=== PATIENT | male | born 1970 | race Caucasian/White ===

== ENCOUNTER 2021-01-10 22:22 | Observation (INO) | payer BC, SELFPAY ==
--- NOTE | ~2021-01-10 | CT_ITS ---
EXAMINATION: CT abdomen pelvis w con DATE: 01/10/2021 23:57 INDICATION: Right upper quadrant abdominal pain TECHNIQUE: Computed tomography (CT) of the abdomen and pelvis was performed with 100 cc Omnipaque 350 intravenous contrast. The dose-length product was 867.76 mGy-cm. Automated exposure control and iter ative reconstruction technique were employed. COMPARISON: None. FINDINGS: Lung bases unremarkable. No significant pleural or pericardial effusion. Heart size normal. No significant vascular abnormality. No lymphadenopathy. Gallbladder is distended. There is a gallstone. There is a punctate 2 mm cystic duct stone. No signif icant biliary dilatation. Subcentimeter hypodense lesion of the right hepatic lobe, most likely benign. The spleen, pancreas, a drenal glands and kidneys are unremarkable. Normal appendix. No abnormal pelvic masses or fluid colle ctions. No free air or free fluid. No lytic or blastic lesions. Mild lumbar spondylosis. IMPRESSION: 1. Punctate 2 mm cystic duct stone. Cholelithiasis. Gallbladder distention. Consider cholecystitis in the appropriate clinical setting. Reviewed, dictated and finalized at location A. IMPRESSION: 1. Punctate 2 mm cystic duct stone. Cholelithiasis. Gallbladder distention. 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
--- NOTE | ~2021-01-10 | XR_ITS ---
EXAMINATION: XR chest 2V EXAM DATE: 01/10/2021 22:52 INDICATION: Right upper quadrant pain. TECHNIQUE: Frontal and lateral projections of the chest obtained and reviewed. There is no prior chandler dy for comparison. FINDINGS: The lungs are clear. There are no pleural effusions. The cardiomediastinal silhouette is within normal limits. There is no pneumothorax suspected. Lower cervical fusion. IMPRESSION: No acute cardiopulmonary findings. Reviewed, dictated and finalized at location A.
[2021-01-10 22:24] VITALS: BP 155/105; PULSE 85; RESP 20; TEMP 36.3; O2SAT 98
--- NOTE | 2021-01-10 22:26 | ECG_ITS ---
Measurements Intervals [place] Rate: 76 P: 53 ME: 176 QRS: 22 QRSD: 99 T: -17 QT: 357 QTc: 404 Interpretive Statements SINUS RHYTHM POSSIBLE LEFT ATRIAL ENLARGEMENT ST-T WAVE ABNORMALITY IN INFERIOR LEADS- CONSIDER ISCHEMIA BASELINE ARTIFACT- I, II, III, AVR, AVL, AVF, V4-V6 ABNORMAL ECG Electronically Signed On 01-11-2021 6:54:30 CDT by Nilson Cyr D.O.
--- NOTE | 2021-01-10 22:34 | ED.CHESTPAIN ---
HPI - Chest Pain General Chief Complaint: Chest Pain Stated Complaint: Chest, upper abd pain Time Seen by Provider: 01/10/21 22:33 History of Present Illness HPI narrative: RUQ and epigastric pain for the past couple of hours. Started about 30 minutes after dinner. Severe. Radiates to the back. Associated with nausea and SOB. He has never had this pain before. He still has his gall bladder. Related Data Allergies Allergy/AdvReac Type Severity Reaction Status Date / Time No Known Allergies Allergy Verified 01/10/21 22:50 Review of Systems Review of Systems: All systems reviewed & are unremarkable except as noted in HPI and below Constitutional: Constitutional: Reports chills and Denies fever(s) Cardiovascular: Cardiovascular: Denies chest pain Respiratory: Respiratory: Reports dyspnea Gastrointestinal: Gastrointestinal: Reports abdominal pain, Reports nausea and Denies vomiting Genitourinary: Genitourinary: Reports no additional male genitourinary complaints Musculoskeletal: Musculoskeletal: Reports back pain Neurologic: Reports system reviewed and no additional complaints, except as documented [facility] Past Medical History Medical History (Updated 01/11/21 @ 14:35 by Joseph Hightower MD) Renal stones Surgical History Surgical History (Updated 01/11/21 @ 08:29 by ULISSES Ramirez) H/O mastectomy For benign lesions of the breast History of carpal tunnel release Bilateral History of cervical spinal surgery History of knee surgery Family History Family History Mother Gallbladder disease Social History Social History Social History: Works and lives near [place]. Currently here visiting a relative. Smoking status: Never smoker Second hand tobacco smoke exposure: No Alcohol intake: current Drinks per week: 1 Substance use: never Substance use type: does not use Occupation/Education: occupation Gender identity (if verbalized by the patient): Male Spiritual care concerns: No Exam Const: General: healthy appearing, no acute distress, alert and uncomfortable Orientation/consciousness: patient oriented x3 HENMT: Head: normal to inspection Resp: Effort & Inspection: normal respiratory effort Auscultation: clear to auscultation bilaterally Cardio: Rate: regular rate Rhythm: regular rhythm GI: Inspection: non-distended GI Palp: Yes Soft to palpation, Yes Tenderness to palpation present (GI) (epigastrium), No Guarding due to palpation present (GI) and No Rebound tenderness present Skin: General skin exam: normal color Neuro: General: patient oriented x3, moves all extremities, no focal motor deficits and CN's II-XI intact bilaterally Speech: normal speech Extrem: General: normal to inspection Psych: Affect: Anxious affect present Course Vital Signs Vital signs: Vital Signs Temperature 36.3 C L 01/10/21 22:24 Pulse Rate 85 01/10/21 22:24 Respiratory Rate 20 01/10/21 22:24 Blood Pressure 155/105 H 01/10/21 22:24 Pulse Oximetry 98 01/10/21 22:24 Temperature 36.4 C 01/11/21 13:00 Pulse Rate 71 01/11/21 13:00 Respiratory Rate 18 01/11/21 13:00 Blood Pressure 139/88 01/11/21 13:00 Pulse Oximetry 97 01/11/21 13:00 MDM - Chest Pain MDM Narrative Medical decision making narrative: CT shows likely early acute cholecystitis. No significant improvement in pain after fentanyl. Case discussed with Dr. Lozoya. He will admit for pain control and reevaluate in the morning Differential Diagnosis Differential diagnosis: Likely other (Cholecystitis, Gastritis, GERd, ) Medical Records Data Attestation: I reviewed the patient's medical records. Lab Data Result diagrams: 01/10/21 22:49 01/10/21 22:49 Labs: Lab Results 01/10/21 01/10/21 01/10/21 Range/Units 22:49 22:49 22:49 WBC 9.5 (4.5-
[2021-01-10 22:42] VITALS: PULSE 83; RESP 18; O2SAT 98
--- NOTE | 2021-01-10 22:47 | PC.NURSE ---
Pt to xray via cart.
--- NOTE | 2021-01-10 22:49 | PC.NURSE ---
Pt returned from xray.
[2021-01-10 22:57] LABS: Basophils Absolute Auto 0.1 K/mm3 (0.0-0.1); Basophils Percent Auto 0.6 % (0.2-1.2); Eosinophils Absolute Auto 0.3 K/mm3 (0-0.3); Eosinophils Percent Auto 3.4 % (0-4.4); Hemoglobin 17.2 g/dL (14.0-18.0); Immature Granulocyte Absolute 0.05 K/mm3 (0.00-0.031); Immature Granulocyte Percent A 0.5 % (0-0.5); Lymphocytes Absolute Auto 3.76 K/mm3 (0.9-3.2); Lymphocytes Percent Auto 39.4 % (18.3-44.2); Mean Corpuscular HGB Conc 33.1 g/dl (32-36); Mean Corpuscular Hemoglobin 30.1 pg (26-34); Mean Corpuscular Volume 90.9 fl (80-100); Mean Platelet Volume 8.3 fl (7.4-10.4); Monocytes Absolute Auto 0.9 K/mm3 (0.1-0.6); Monocytes Percent Auto 8.9 % (2.6-8.5); Neutrophils Absolute Auto 4.5 K/mm3 (1.3-6.7); Neutrophils Percent Auto 47.2 % (45.5-73.1); Platelet Count Result 258 k/mm3 (150-375); Red Blood Count 5.72 M/mm3 (4.6-6.20); White Blood Count 9.5 K/mm3 (4.5-10.0)
[2021-01-10 23:07] LABS: INR 0.8; Partial Thromboplastin Time 28.4 SECONDS (22.3-36.8); Prothrombin Time 11.9 Seconds (11.1-14.7)
[2021-01-10] MEDS: BELLADONNA ALK/PHENOB ELIX 10 ML, MAG HYDROX/ALUMINUM HYD/SIMETH 30 ML, LIDOCAINE HCL 2... PO (23:08)
[2021-01-10 23:09] LABS: Anion Gap 4 mmol/L (8-16); Blood Urea Nitrogen 14 mg/dL (9-20); Calcium 8.6 mg/dL (8.4-10.2); Carbon Dioxide 32 mmol/L (22-30); Chloride 103 mmol/L (98-107); Estimated Glomerular Filt Rate > 60; Glucose 134 mg/dL (75-110); Potassium 3.8 mmol/L (3.4-5.0); Sodium 139 mmol/L (137-145)
[2021-01-10 23:10] LABS: Alanine Aminotransferase 23 U/L (4-50); Alkaline Phosphatase 79 U/L (38-126); Aspartate Amino Transferase 31 U/L (17-59); Bilirubin,Total 0.3 mg/dL (0.2-1.3); Lipase 140 U/L (23-300)
[2021-01-10 23:13] VITALS: BP 140/86; PULSE 76; RESP 18; O2SAT 97
[2021-01-10 23:21] LABS: Troponin I < 0.012 ng/mL (0.000-0.034)
[2021-01-10] MEDS: fentaNYL CITRATE INJ (*CRX) 100 MCG/2 ML VIAL 50 MCG IV PUSH (23:31)
[2021-01-11] VITALS (20 sets, daily range): BP systolic 112–156; BP diastolic 66–107; PULSE 56–89; RESP 10–20; TEMP 36.1–36.8; O2SAT 93–100; BMI 32.5; BMI 68.3
--- NOTE | 2021-01-11 00:34 | PC.NURSE ---
Pt continues to complain of pain to RUQ. Will notify EDMD. Pt resting on cart in its lowest position with call button and personal items within reach. Advised to press call button for assistance.
--- NOTE | 2021-01-11 00:54 | PC.NURSE ---
EDMD notified of pt persistent pain; no new orders given.
[2021-01-11] MEDS: MORPHINE SULFATE (*CRX) 4 MG/ML INJ IV PUSH ×6 (00:57→18:55)
[2021-01-11] MEDS: LACTATED RINGERS 1,000 ML 125 ML IV CONT ×2 (01:58→16:12)
--- NOTE | 2021-01-11 02:15 | PC.NURSE ---
Report called to receiving nurseAriel.
--- NOTE | 2021-01-11 03:02 | ADMGEN ---
This patient, Ariel Spring, was admitted to [facility] Room 319-01. Patient/family oriented to hospital policies and general routines including ID bracelet, bed and alarms, visiting hours, pain management, procedures, bathroom and other care routines, personal items, smoking policy, room service/diet, and visiting hours. Information on how to activate the Rapid Response Team has been discussed. Patient/Family are encouraged to report perceived risks to care and to ask questions if they do not understand what they are told or what they should do.
[2021-01-11 03:51] LABS: Troponin I < 0.012 ng/mL (0.000-0.034)
[2021-01-11 06:34] LABS: Troponin I < 0.012 ng/mL (0.000-0.034)
--- NOTE | 2021-01-11 08:27 | PM.IMHP ---
H&P: HPI History of Present Illness Date/Time: 01/11/21 08:27 Chief Complaint: RUQ and epigastric abdominal pain Narrative: This is a 50-year-old male who presented to the ER for complaints of right upper quadrant and epigastric abdominal pain. The patient reports eating stuffed peppers, spicy potatoes, and cake last night for dinner. Shortly after eating, he had an onset of right upper quadrant abdominal pain. This pain radiated to his mid back and epigastric area. He had associated nausea, but no vomiting. The pain gradually worsened and he eventually presented to the ER last night for further evaluation. CT scan of the abdomen and pelvis showed a punctate 2 mm cystic duct stone, cholelithiasis, and gallbladder distention. Labs were unremarkable. Troponins negative x3. Our service was contacted by the ER physician and the patient is now admitted in the setting of possible acute cholecystitis. The patient is now seen on the medical floor. He reports some improvement in his abdominal pain after analgesics, but the pain returns once the analgesics wear off. No other complaints at this time. Denies having this pain in the past. No history of abdominal surgeries. Review of Systems Review of Systems: All systems reviewed & are unremarkable except as noted in HPI and below Constitutional: Constitutional: Reports as per HPI, Denies chills, Denies fatigue, Denies fever(s), Denies headache(s) and Denies weakness Eyes: Eyes: Reports no additional eye complaints and Denies change in vision ENT: Reports system reviewed and no additional complaints, except as documented, Denies dizziness, Denies headache(s) and Denies hearing loss Cardiovascular: Cardiovascular: Reports no additional cardiovascular complaints, Denies chest pain, Denies leg edema and Denies radiating jaw, neck or arm pain Respiratory: Respiratory: Reports no additional respiratory complaints, Denies cough, Denies dyspnea and Denies wheezing Gastrointestinal: Gastrointestinal: Reports as per HPI, Reports no additional gastrointestinal complaints, Reports abdominal pain, Denies change in bowel habits, Denies diarrhea, Reports nausea and Denies vomiting Genitourinary: Genitourinary: Reports no additional male genitourinary complaints, Denies hematuria and Denies dysuria Musculoskeletal: Musculoskeletal: Reports no additional musculoskeletal complaints, Denies abnormal gait, Denies joint swelling, Denies numbness and Denies tingling Integumentary/Breasts: Skin/Breast: Denies rash and Denies wounds Neurologic: Reports system reviewed and no additional complaints, except as documented, Denies abnormal gait, Denies dizziness, Denies numbness, Denies tingling and Denies weakness PMFSH Past Medical History Medical History No pertinent past medical history Surgical History Surgical History (Updated 01/11/21 @ 08:29 by ULISSES Ramirez) H/O mastectomy For benign lesions of the breast History of carpal tunnel release Bilateral History of cervical spinal surgery History of knee surgery Family History Family History Mother Gallbladder disease Social History Social History Social History: Works and lives near [place]. Currently here visiting a relative. Smoking status: Never smoker Second hand tobacco smoke exposure: No Alcohol intake: current Drinks per week: 1 Substance use: never Substance use type: does not use Occupation/Education: occupation Gender identity (if verbalized by the patient): Male Spiritual care concerns: No Meds Home Medications and Allergies Allergies Allergy/AdvReac Type Severity Reaction Status Date / Time No Known Allergies Allergy Verified 01/10/21 22:50 Vital Signs Vital Signs - 24 hr 01/10/21 22:24 01/10/21 22:42 01/10/21 23:13 Tem
--- NOTE | 2021-01-11 08:44 | WPDANESEPPF ---
Anes - Initial Pre Proc Eval Procedure: Operation Date: 01/11/21 09:15 Proposed Procedures p Laparoscopic Cholecystectomy - Blanca Lozoya MD Date/Time: 01/11/21 08:44 Surgeon: Blanca Lozoya MD Pre Op Diagnosis: biliary colic Patient Data Age: 50 Gender: M Height: 1.75 m Weight: 210 kg Last Vital Signs Temp 36.6 C 01/11/21 06:00 Pulse 60 01/11/21 06:00 Resp 18 01/11/21 06:00 BP 112/66 01/11/21 06:00 Pulse Ox 97 01/11/21 06:00 Allergies Allergy/AdvReac Type Severity Reaction Status Date / Time No Known Allergies Allergy Verified 01/10/21 22:50 Laboratory Tests 01/10/21 01/10/21 01/10/21 22:49 22:49 22:49 WBC 9.5 K/mm3 K/mm3 (4.5-10.0) RBC 5.72 M/mm3 M/mm3 (4.6-6.20) Hgb 17.2 g/dL g/dL (14.0-18.0) Hct 52.0 % % (42.0-52.0) MCV 90.9 fl fl (80-100) MCH 30.1 pg pg (26-34) MCHC 33.1 g/dl g/dl (32-36) RDW 13.0 % % (11.5-14.5) Plt Count 258 k/mm3 k/mm3 (150-375) MPV 8.3 fl fl (7.4-10.4) Immature Gran % (Auto) 0.5 % % (0-0.5) Neut % (Auto) 47.2 % % (45.5-73.1) Lymph % (Auto) 39.4 % % (18.3-44.2) Collier % (Auto) 8.9 % H % (2.6-8.5) Eos % (Auto) 3.4 % % (0-4.4) Baso % (Auto) 0.6 % % (0.2-1.2) Lymph # (Auto) 3.76 K/mm3 H K/mm3 (0.9-3.2) Collier # (Auto) 0.9 K/mm3 H K/mm3 (0.1-0.6) Eos # (Auto) 0.3 K/mm3 K/mm3 (0-0.3) Baso # (Auto) 0.1 K/mm3 K/mm3 (0.0-0.1) Abs Immat Gran (auto) 0.05 K/mm3 H K/mm3 (0.00-0.031) Absolute Neuts (auto) 4.5 K/mm3 K/mm3 (1.3-6.7) Absolute Nucleated RBC 0.0 K/mm3 K/mm3 (0.0-0.012) Nucleated RBC % 0.0 % % (0.0-0.2) PT 11.9 Seconds Seconds (11.1-14.7) INR 0.8 APTT 28.4 SECONDS SECONDS (22.3-36.8) Sodium 139 mmol/L mmol/L (137-145) Potassium 3.8 mmol/L mmol/L (3.4-5.0) Chloride 103 mmol/L mmol/L (98-107) Carbon Dioxide 32 mmol/L H mmol/L (22-30) Anion Gap 4 mmol/L L mmol/L (8-16) BUN 14 mg/dL mg/dL (9-20) Creatinine 1.10 mg/dL mg/dL (0.7-1.3) Estim Creat Clear Calc Not Reportable Estimated GFR > 60 (59 - ) Glucose 134 mg/dL H mg/dL (75-110) Calcium 8.6 mg/dL mg/dL (8.4-10.2) Total Bilirubin Direct Bilirubin AST ALT Alkaline Phosphatase Troponin I < 0.012 ng/mL ng/mL (0.000-0.034) Total Protein Albumin Lipase 01/10/21 01/11/21 01/11/21 22:49 03:15 05:53 WBC RBC Hgb Hct MCV MCH MCHC RDW Plt Count MPV Immature Gran % (Auto) Neut % (Auto) Lymph % (Auto) Collier % (Auto) Eos % (Auto) Baso % (Auto) Lymph # (Auto) Collier # (Auto) Eos # (Auto) Baso # (Auto) Abs Immat Gran (auto) Absolute Neuts (auto) Absolute Nucleated RBC Nucleated RBC % PT INR APTT Sodium Potassium Chloride Carbon Dioxide Anion Gap BUN Creatinine Estim Creat Clear Calc Estimated GFR Glucose Calcium Total Bilirubin 0.3 mg/dL mg/dL (0.2-1.3) Direct Bilirubin 0.0 mg/dL mg/dL (0-0.3) AST 31 U/L U/L (17-59) ALT 23 U/L U/L (4-50) Alkaline Phosphatase 79 U/L U/L (38-126) Troponin I < 0.012 ng/mL ng/mL < 0.012 ng/mL ng/mL (0.000-0.0
[2021-01-11] MEDS: LACTATED RINGERS 1,000 ML 30 ML IV CONT ×2 (08:59→11:37)
--- NOTE | 2021-01-11 09:13 | WPDHPUPDATE1 ---
History and Physical Update Update Date/Time: 01/11/21 09:13 History and Physical has been reviewed, including an updated exam of the patient. There are NO changes in the patient's condition. Risks, benefits, and alternatives have been discussed and questions answered. Patient agrees to proceed with procedure.
[2021-01-11] MEDS: ceFAZolin 2 GM/D5W 50 ML 2 GM/50 ML BAG IVPB (09:48)
[2021-01-11] MEDS: BUPIVACAINE/EPINEPHRINE 0.5% 30 ML VIAL INFILTRATE (09:58)
--- NOTE | 2021-01-11 10:39 | PM.PROC ---
Procedure Note - Detailed Date of procedure: 01/11/21 Pre-op diagnosis: biliary colic acute cholecystitis Post-op diagnosis: same Procedure performed: laparoscopic cholecystectomy Description of procedure: The patient was taken to the operating room placed in the supine position. After adequate induction of general anesthesia, the patient was prepped and draped in normal sterile fashion. A time-out was then performed to verify the patient's identity as well as the procedure being performed. I then made a 5 mm incision in the infraumbilical region. Through this, a Veress needle was placed into the peritoneal cavity and CO2 gas was then insufflated. After adequate pneumoperitoneum was achieved, the Veress needle was removed and a 5 mm optiview trocar was placed through this incision under direct visualization. I then placed the laparoscope through this trocar site and under direct visualization placed a further 12 mm subxiphoid port as well as 2 additional 5 mm ports in the right upper abdomen. The gallbladder was then identified and was noted to be moderately inflamed. I was able to place a grasper at the dome of the gallbladder and this was retracted anterior and cephalad up over the liver. A 2nd retractor was then placed at the infundibulum and retracted laterally, this allowed visualization of the triangle of Calot. I then was able to visualize the cystic duct in its entirety from its proximal insertion into the gallbladder, to its distal junction with the common hepatic/common bile duct junction. At this point, I carefully skeletonized the proximal cystic duct with the [place] dissector. I then clipped and transected the proximal cystic duct. Next I visualized the cystic artery. Again the artery was skeletonized, clipped, and transected. I then used the Bovie cautery to take down the peritoneal attachments of the gallbladder off the liver bed. Once the gallbladder specimen was completely detached, an endo-pouch was placed through the 12 mm port site. I then placed the gallbladder specimen into the Endo pouch and removed the endo-pouch from the 12 mm port site. The specimen will now be sent to pathology for further review. I then copiously irrigated the right upper quadrant. Hemostasis was noted in the liver bed, the clips were noted to be in good position on both the cystic duct stump and the cystic artery stump. No other pathology was noted in the right upper quadrant. I then moved the laparoscope to the subxiphoid port. No iatrogenic injury or other pathology was noted in the lower abdomen. I then closed the 12 mm trocar site under direct visualization using the Ricardo cone and 0 Vicryl suture. At this point, the abdomen was desufflated and all ports removed. All port sites were then closed with 4.O Monocryl subcuticular sutures. Dermabond was placed on each incision. The patient tolerated the procedure well, was extubated in the operating room postoperative and will be transferred to the recovery room in stable condition. Implants: none Anesthesia: GETA Surgeon: Blanca Lozoya MD Estimated blood loss (mL): 5 Drains: No Packing: No Pathology: yes Complications: No immediate complications Condition: stable Disposition: PACU Findings: acute cholecystitis
[2021-01-11] MEDS: fentaNYL CITRATE INJ (*CRX) 100 MCG/2 ML VIAL 25 MCG IV PUSH ×8 (11:03→11:39)
--- NOTE | 2021-01-11 11:48 | SUR.PHASEI ---
1147 sbar faxed floor notified
--- NOTE | 2021-01-11 12:26 | PC.NURSE ---
Received post surgical report from CAMERON Coyle. 1200pm 4 glue incision sites closed with glue. Pt on 2 L nasal cannula at this time. Diastolic BP had been elevated when pt first entered PACU. Was in 100s now is in low 90s. Pain is a 5 at this time.
[2021-01-12 00:16] VITALS: BP 120/64; PULSE 79; RESP 20; TEMP 36.6; O2SAT 96
[2021-01-12] MEDS: LACTATED RINGERS 1,000 ML 125 ML IV CONT (00:35)
[2021-01-12] MEDS: HYDROcodone/acetaminophen (*CRX) 5-325 MG TABLET 1 TAB PO ×2 (00:39→05:32)
[2021-01-12 04:00] VITALS: BP 112/79; PULSE 82; RESP 20; TEMP 37; O2SAT 93
--- NOTE | 2021-01-12 07:46 | WPDANESPN ---
Anes - Prog Note Post-Op Date/Time: 01/12/21 07:46 Cardiovascular status: normal Respiratory status: normal Airway patency: baseline Mental status: baseline Post-Op hydration status: normal Vital Signs: Last Vital Signs Temp 98.6 F 01/12/21 04:00 Pulse 82 01/12/21 04:00 Resp 20 01/12/21 04:00 BP 112/79 01/12/21 04:00 Pulse Ox 93 01/12/21 04:00 Pain Score (VAS): 10/31 I/O: Intake & Output 01/11/21 01/11/21 01/12/21 15:59 23:59 07:59 Intake Total 3709 613 1092 Balance 6542 742 [id number] Laboratory Tests 01/10/21 22:49 01/10/21 22:49 Patient Feedback: Patient satisfied with anesthetic care.
--- NOTE | 2021-01-12 09:38 | PM.DS ---
DS: Admitting Diagnosis Admitting Diagnosis Admitting Diagnosis: Acute calculous cholecystitis DS: Discharge Diagnosis Discharge Diagnosis (1) Acute calculous cholecystitis: Code(s): K80.00 - Calculus of gallbladder with acute cholecystitis without obstruction Status: Acute Assessment and Plan: 01/11/[address] Lozoya DS: Summary Hospital Course Reason for hospitalization: This is a 50-year-old male who presented to the ER 2 nights ago with complaints of right upper quadrant and epigastric abdominal pain. The onset of pain came shortly after a fatty meal. He was evaluated in the ER and found to have evidence of possible acute calculous cholecystitis on the CT scan of the abdomen and pelvis. He was then admitted to our service for surgical evaluation of acute cholecystitis. Hospital Course: After examining the patient and discussing with him, he was taken to the OR on 01/11/2021 for a laparoscopic cholecystectomy by Dr. Lozoya. The patient tolerated the procedure well with no immediate complications. Intraoperative findings suggested acute calculous cholecystitis. Following surgery, he was taken back to the medical floor. He did require some IV analgesics postoperatively and stayed overnight. He was advanced to regular diet and is tolerating this well now. The patient is now seen this morning. Pain is well controlled with oral analgesics. No nausea or vomiting. Tolerating activity. Voiding without difficulty. No other complaints at this time. He is stable for discharge and this has been discussed with Dr. Lozoya. I discussed all discharge instructions with the patient and answered all questions. Status at Discharge Functional status at discharge: independent ambulation Overall status at discharge: patient is progressing back to baseline Time Spent with Patient Time attestation: Total time spent providing and/or coordinating discharge services: Time spent: Greater than 30 minutes Exam Const: General: comfortable, no acute distress, alert and awake Orientation/consciousness: patient oriented x3 Resp: Effort & Inspection: normal respiratory effort Auscultation: clear to auscultation bilaterally Cardio: Rate: regular rate Rhythm: regular rhythm GI: Inspection: non-distended and incision (Abdominal incisions clean and dry, glue intact.) GI Palp: Yes Soft to palpation and Yes Tenderness to palpation present (GI) (incisional) Auscultation: normal bowel sounds Skin: General skin exam: normal color Neuro: General: moves all extremities and no focal motor deficits Cranial nerves: Yes CN's II-XII intact bilaterally Speech: normal speech Extrem: General: no clubbing, cyanosis or edema and no calf tenderness Psych: Mental Status: mental status grossly normal Insight: Good insight present (Psych) Judgement: Good judgement present (Psych) DS: Data Data Completed and Pending Pending studies at discharge: Pending at discharge 01/11/21 10:00 Surgical [PTH] Routine Procedures/Treatments: Procedures Operation Date: 01/11/21 09:15 Actual Procedures Side Surgeon p Laparoscopic Cholecystectomy Blanca Lozoya MD Imaging Radiologist's impression: ITS Impressions Chest X-Ray 01/10/21 22:55 IMPRESSION: No acute cardiopulmonary findings. Abdomen/Pelvis CT 01/11/21 06:52 IMPRESSION: 1. Punctate 2 mm cystic duct stone. Cholelithiasis. Gallbladder distention. Consider cholecystitis in the appropriate clinical setting. Discharge Plan Discharge Attending physician on discharge: Blanca Lozoya Discharging Clinician: Majo García Anticipated Discharge Date/Time: 01/12/21 10:00 Patient Disposition: Home, Self-Care Activity: may shower and other - see discharge instructions Diet: low fat Wound Care Instructions: incision open to air Discharge Instructions: DISCHARGE INSTRUCTION SHEET FOR HERNIA, GALLBLADDER AND APPENDIX SELWYN
== END 2021-01-12 11:35 | disposition home or self-care (01) ==
LOC: ANHED 23:07 → ANH3MEDSUR 01-11 01:38
PROVIDERS: Admitting Provider Surgery; Emergency Provider Emergency Medicine; Visit Provider Surgery
PROC: 0FT44ZZ Resection of Gallbladder, Percutaneous Endoscopic Approach (ICD-10-PCS; CPT 47562; principal; 2021-01-11 09:15)
DX: K80.10 Calculus of gallbladder with chronic cholecystitis without obstruction (principal)
CPT/HCPCS: 47562; 36415; 71046; 74177; 80048; 80076; 83690; 84484; 85025; 85610; 85730; 88304; 93005; 96360; 96361; 96374; 96375; 96376; 99285; A9270; G0378; J0330; J0690; J1100; J2250; J2270; J2405; J2704; J3010; J7030; J7120; Q9967